=== PATIENT | male | born 1930 | race Caucasian/White ===

== ENCOUNTER 2018-08-20 01:54 | Inpatient (IN) | payer MEDICARE ==
[~2018-08-20] VITALS: Ht 185.4 cm; Wt 88.0 kg
--- NOTE | 2018-08-20 02:00 | NUR ---
EKG COMPLETED BY [employer] AND DR[employer] INSPECTOR.
--- NOTE | 2018-08-20 02:01 | NUR ---
PT REPORTS BEING AWOKE FROM SLEEP WITH GENERALIZED ABD PAIN AND NAUSEA, NO EMESIS. PT DENIES DIARRHEA OR URINARY SX. PT DENIES PRIOR SICKNESS. PT DENIES FEVER. PT A/OX4, BREATHING E/U, ON 3L O2 CONTINUOUS AT HOME. PT GIVEN FENTANYL 150MCG AND ZOFRAN 8MG ENROUTE PER EMS, PT REPORTS MINIMAL RELIEF FROM MEDS. PT RESTING, PLACED ON CARDIAC AND VS MONITORING. 18G IV TO RAC BY EMS. PT AWAITING MD CHOWDARY. CALL LIGHT IN REACH.
--- NOTE | 2018-08-20 02:03 | NUR ---
MD TO BEDSIDE FOR PT EVAL.
--- NOTE | 2018-08-20 02:21 | NUR ---
LAB AT BEDSIDE FOR BLOOD DRAW.
[2018-08-20] MEDS ORDERED: FAMOTIDINE 20 MG/2 ML ONE (02:25)
[2018-08-20] MEDS ORDERED: PLEASE ENTER ALLERGIES MC SCH (02:30)
[2018-08-20] MEDS ORDERED: FAMOTIDINE 20 MG/2 ML IVP ONE (02:30)
--- NOTE | 2018-08-20 02:30 | NUR ---
PT RECIEVED PEPCID PER ORDERS, SEE EMAR. PT GIVEN A URINAL AT BEDSIDE, PT STATES HE CANNOT URINATE AT THIS TIME R/T NAUSEA. WILL MONITOR PT. VSS. CONTINUES ON CARDIAC AND VS MONITORING. NO DISTRESS NOTED.
[2018-08-20 02:35] LABS: BASOPHILS # (AUTO) 0.02 x10^3/uL (0-0.1); BASOPHILS % (AUTO) 0 % (0-1); EOSINOPHILS % (AUTO) 3 % (1-7); LYMPHOCYTES # (AUTO) 0.66 x10^3/uL (1-3.4); LYMPHOCYTES % (AUTO) 10 % (22-44); MD NO; MEAN CORPUSCULAR HEMOGLOBIN 31.8 pg (27.5-34.5); MEAN CORPUSCULAR VOLUME 96.4 fL (81-97); MEAN PLATELET VOLUME 8.9 fL (7.4-10.4); MONOCYTES # (AUTO) 0.53 x10^3/uL (0.2-0.8); MONOCYTES % (AUTO) 8 % (2-9); NEUTROPHILS # (AUTO) 5.11 x10^3/uL (1.8-6.8); NEUTROPHILS % (AUTO) 78 % (42-75); PLATELET COUNT 104 x10^3/uL (130-400); RED BLOOD COUNT 3.74 x10^6/uL (4.38-5.82); RED CELL DISTRIBUTION WIDTH 15.3 % (9.4-14.8)
[2018-08-20 02:42] LABS: ALANINE AMINOTRANSFERASE 26 U/L (12-78); ALBUMIN 3.7 g/dL (3.4-5.0); ANION GAP 10 mmol/L (5-15); CALCIUM 8.8 mg/dL (8.5-10.1); CHLORIDE 105 mmol/L (98-107); CREATININE 2.47 mg/dL (0.7-1.3)
[2018-08-20 02:46] LABS: ALKALINE PHOSPHATASE 177 U/L (45-117); BILIRUBIN,TOTAL 0.8 mg/dL (0.2-1.0); TOTAL PROTEIN 7.5 g/dL (6.4-8.2)
[2018-08-20 02:49] LABS: TROPONIN I 0.956 ng/mL (0.000-0.045)
--- NOTE | 2018-08-20 02:50 | NUR ---
PT UP TO BEDSIDE FOR URINE COLLECTION VIA URINAL WITH STEADY GAIT.
--- NOTE | 2018-08-20 02:57 | NUR ---
URINE SENT TO LAB, PT REPORTS STILL FEELING SICK AND HAVING NAUSEA, MD NOTIFIED, AWAITING ORDERS. PT TO CT VIA [facility]. PT TO HAVE REPEAT EKG WHEN RETURN FROM CT.
[2018-08-20] MEDS ORDERED: ASPIRIN 325 MG TABLET PO SCH (03:00)
[2018-08-20] MEDS ORDERED: PROMETHAZINE 25 MG/ML, 1ML IM ONE (03:00)
[2018-08-20] MEDS ORDERED: ASPIRIN 325 MG TABLET ONE (03:13)
[2018-08-20] MEDS ORDERED: PROMETHAZINE 25 MG/ML, 1ML ONE (03:13)
--- NOTE | 2018-08-20 03:16 | NUR ---
PT RETURN FROM CT, EKG COMPLETE. PT TO RECIEVE MEDS.
--- NOTE | 2018-08-20 03:20 | NUR ---
PT RECIEVED MEDS PER ORDERS, SEE EMAR. PT TOLERATED INJECTION TO R DELTOID. PT CONTINUES ON CARDIAC AND VS MONITORING. CALL LIGHT IN REACH.
[2018-08-20 03:27] LABS: CULTURE INDICATED? NO; MICROSCOPIC NOT IND
--- NOTE | 2018-08-20 03:37 | NUR ---
unable to update med list, pt states he had a list in his wallet but gave it to EMS to look at and doesn't think he got it back.
[2018-08-20] MEDS ORDERED: HEPARIN 25,000 UNITS/500ML PMX 500 ML IV PRN ×2 (04:00→05:30)
[2018-08-20] MEDS ORDERED: HEPARIN 5,000 UNITS/ML, 1ML IV ONE (04:00)
[2018-08-20] MEDS ORDERED: HEPARIN 25,000 UNITS/500ML PMX 500 ML ONE (04:09)
[2018-08-20] MEDS ORDERED: HEPARIN 5,000 UNITS/ML, 1ML ONE (04:09)
[2018-08-20] MEDS ORDERED: [UNRECOGNIZED DRUG - OTHER] PO (04:12)
[2018-08-20] MEDS ORDERED: PANT20TA3 PO (04:12)
[2018-08-20] MEDS ORDERED: CLOP75TA52 PO (04:12)
[2018-08-20] MEDS ORDERED: FURO-92 PO (04:12)
[2018-08-20] MEDS ORDERED: LEVO175T5 PO (04:12)
[2018-08-20] MEDS ORDERED: LOSA25TA25 PO (04:12)
[2018-08-20] MEDS ORDERED: CARV6.252 PO (04:12)
--- NOTE | 2018-08-20 04:19 | NUR ---
REPORT TO MAX HOWELL. THIS RN SPOKE WITH [facility] FOR MED LIST, MED LIST RECIEVED FROM [facility], MED LIST UPDATED. PT TO HAVE HEPARIN PRIOR TO GOING TO ROOM.
--- NOTE | 2018-08-20 04:27 | NUR ---
THIS RN SPOKE WITH HERON IN PHARMACY TO VERIFY HEPARIN, PER HERON THE PHARMACIST PT TO HAVE 4000 UNITY BOLUS WITH 18ML/HR DRIP.
[2018-08-20] MEDS ORDERED: POLYETHYLENE GLYCOL 17 GM PACKET PO PRN (04:30)
[2018-08-20] MEDS ORDERED: morphine SULFATE 10 MG/ML, 1ML IVPush PRN (04:30)
[2018-08-20] MEDS ORDERED: ONDANSETRON 2MG/ML, 2ML IVPush PRN (04:30)
--- NOTE | 2018-08-20 04:39 | NUR ---
HEPARIN VERIFIED BY CLEMENTINA Case RN. HEPARIN GIVEN PER ORDERS, AND PER PHARMACY.
--- NOTE | 2018-08-20 04:42 | NUR ---
PT TO US VIA GURNEY. ALL BELONGINGS WITH PT TO US IF ABLE TO BE TRANSPORTED TO ROOM.
[2018-08-20] MEDS: [UNRECOGNIZED DRUG - OTHER] MC SCH ×2 (05:30→10:30)
[2018-08-20] MEDS: CEFTRIAXONE PMX 2GM/50ML 50 ML IV SCH (05:36)
[2018-08-20] MEDS: SODIUM CHLORIDE 0.9% 1,000 ML IV SCH ×2 (05:36→17:53)
[2018-08-20 06:39] VITALS: BP 124/76
[2018-08-20 07:19] LABS: TROPONIN I 0.879 ng/mL (0.000-0.045)
[2018-08-20 07:58] VITALS: BP 119/74
[2018-08-20] MEDS ORDERED: LEVOTHYROXINE 50 MCG TABLET ONE (08:38)
[2018-08-20] MEDS ORDERED: LEVOTHYROXINE 100 MCG TABLET ONE (08:38)
[2018-08-20] MEDS ORDERED: LEVOTHYROXINE 25 MCG TABLET ONE (08:38)
[2018-08-20] MEDS ORDERED: PANTOPRAZOLE 40 MG IV ONE (08:40)
[2018-08-20 08:41] LABS: ANION GAP 8 mmol/L (5-15); CALCIUM 8.7 mg/dL (8.5-10.1); CHLORIDE 106 mmol/L (98-107)
[2018-08-20] MEDS ORDERED: PANTOPROZOLE 40MG TABLET ONE (08:41)
[2018-08-20] MEDS: LOSARTAN 25MG TABLET PO SCH (08:45)
[2018-08-20] MEDS: CARVEDILOL 6.25 MG TABLET PO SCH ×2 (08:45→20:10)
[2018-08-20] MEDS: CLOPIDOGREL 75 MG TABLET PO SCH (08:45)
[2018-08-20] MEDS: LEVOTHYROXINE 175 MCG TABLET PO SCH (08:46)
[2018-08-20] MEDS: PANTOPRAZOLE 20MG TABLET PO SCH (08:46)
[2018-08-20] MEDS ORDERED: [UNRECOGNIZED DRUG - OTHER] PO SCH (09:00)
[2018-08-20] MEDS: FEBUXOSTAT 40 MG TABLET PO SCH (10:30)
[2018-08-20 11:27] LABS: TROPONIN I 0.873 ng/mL (0.000-0.045)
[2018-08-20] MEDS: HEPARIN 5,000 UNITS/ML, 1ML IV PRN ×2 (12:40→19:54)
[2018-08-20 12:45] VITALS: BP 117/70
[2018-08-20 13:04] LABS: CALCIUM 8.8 mg/dL (8.5-10.1); CHLORIDE 107 mmol/L (98-107)
[2018-08-20 13:08] LABS: ANION GAP 10 mmol/L (5-15); CREATININE 2.53 mg/dL (0.7-1.3)
[2018-08-20] MEDS ORDERED: MULT-658 PO (16:48)
[2018-08-20] MEDS ORDERED: FEBU40TA PO (16:49)
[2018-08-20 20:00] VITALS: BP 106/62
[2018-08-20 23:46] LABS: CHLORIDE,URINE RANDOM 15 mmol/L; POTASSIUM,URINE RANDOM 27 mmol/L; SODIUM,URINE RANDOM 29 mmol/L
[2018-08-21 02:00] VITALS: BP 110/67
[2018-08-21] MEDS: CEFTRIAXONE PMX 2GM/50ML 50 ML IV SCH (04:26)
[2018-08-21 05:38] LABS: MEAN PLATELET VOLUME 9.4 fL (7.4-10.4); PLATELET COUNT 98 x10^3/uL (130-400); RED BLOOD COUNT 3.15 x10^6/uL (4.38-5.82); RED CELL DISTRIBUTION WIDTH 15.7 % (9.4-14.8)
[2018-08-21 05:45] LABS: CHLORIDE 111 mmol/L (98-107)
[2018-08-21 05:54] LABS: ALANINE AMINOTRANSFERASE 22 U/L (12-78); ALBUMIN 3.2 g/dL (3.4-5.0); ALKALINE PHOSPHATASE 148 U/L (45-117); ANION GAP 4 mmol/L (5-15); BILIRUBIN,TOTAL 0.6 mg/dL (0.2-1.0); CALCIUM 8.8 mg/dL (8.5-10.1); CHOL/HDL RATIO 2.3; CHOLESTEROL, TOTAL 96 mg/dL (140-239); HDL CHOL % 44 % (26-37); HDL CHOLESTEROL (DIRECT) 42 mg/dL (40-60); LDL CHOLESTEROL,CALCULATED 45 mg/dL (54-169); LDL/HDL RATIO 1.1 (0.5-3.0); TOTAL PROTEIN 6.7 g/dL (6.4-8.2); TRIGLYCERIDES 44 mg/dL (50-200); VLDL CHOLESTEROL 9 mg/dL (0-25)
[2018-08-21 05:55] LABS: BASOPHILS # (AUTO) 0.05 x10^3/uL (0-0.1); BASOPHILS % (AUTO) 1 % (0-1); EOSINOPHILS # (AUTO) 0.26 x10^3/uL (0-0.4); EOSINOPHILS % (AUTO) 4 % (1-7); LYMPHOCYTES # (AUTO) 1.03 x10^3/uL (1-3.4); LYMPHOCYTES % (AUTO) 16 % (22-44); MD SCAN; MONOCYTES # (AUTO) 0.61 x10^3/uL (0.2-0.8); MONOCYTES % (AUTO) 9 % (2-9); NEUTROPHILS # (AUTO) 4.59 x10^3/uL (1.8-6.8); NEUTROPHILS % (AUTO) 70 % (42-75)
[2018-08-21 07:18] VITALS: BP 121/72
[2018-08-21] MEDS: CLOPIDOGREL 75 MG TABLET PO SCH (08:07)
[2018-08-21] MEDS: CARVEDILOL 6.25 MG TABLET PO SCH ×2 (08:08→20:50)
[2018-08-21] MEDS: PANTOPRAZOLE 20MG TABLET PO SCH (08:08)
[2018-08-21] MEDS: FEBUXOSTAT 40 MG TABLET PO SCH (08:08)
[2018-08-21] MEDS: LOSARTAN 25MG TABLET PO SCH (08:08)
[2018-08-21] MEDS: LEVOTHYROXINE 175 MCG TABLET PO SCH (08:08)
[2018-08-21] MEDS: HEPARIN 5,000 UNITS/ML, 1ML IV PRN (10:13)
[2018-08-21 13:19] VITALS: BP 106/62
[2018-08-21 20:31] VITALS: BP 115/64
[2018-08-22 01:53] VITALS: BP 100/59
[2018-08-22] MEDS: ACETAMINOPHEN 325 MG TABLET PO PRN ×2 (02:07→15:06)
[2018-08-22] MEDS ORDERED: ASPIRIN 81 MG TABLET EC PO SCH (06:00)
[2018-08-22 06:03] LABS: MEAN CORPUSCULAR HEMOGLOBIN 32.9 pg (27.5-34.5); MEAN CORPUSCULAR VOLUME 96.8 fL (81-97); RED BLOOD COUNT 3.02 x10^6/uL (4.38-5.82); RED CELL DISTRIBUTION WIDTH 15.7 % (9.4-14.8)
[2018-08-22 06:12] LABS: CALCIUM 8.5 mg/dL (8.5-10.1); CHLORIDE 111 mmol/L (98-107)
[2018-08-22 06:15] LABS: ANION GAP 9 mmol/L (5-15); CREATININE 2.55 mg/dL (0.7-1.3)
[2018-08-22 06:27] LABS: BASOPHILS # (AUTO) 0.02 x10^3/uL (0-0.1); BASOPHILS % (AUTO) 0 % (0-1); EOSINOPHILS # (AUTO) 0.13 x10^3/uL (0-0.4); EOSINOPHILS % (AUTO) 2 % (1-7); LYMPHOCYTES # (AUTO) 0.87 x10^3/uL (1-3.4); LYMPHOCYTES % (AUTO) 12 % (22-44); MD SCAN; MEAN PLATELET VOLUME 9.2 fL (7.4-10.4); MONOCYTES # (AUTO) 0.86 x10^3/uL (0.2-0.8); MONOCYTES % (AUTO) 12 % (2-9); NEUTROPHILS # (AUTO) 5.61 x10^3/uL (1.8-6.8); NEUTROPHILS % (AUTO) 75 % (42-75); PLATELET COUNT 90 x10^3/uL (130-400)
[2018-08-22 07:01] VITALS: BP 103/58
[2018-08-22] MEDS ORDERED: LEVOTHYROXINE 100 MCG TABLET ONE (10:01)
[2018-08-22] MEDS ORDERED: LEVOTHYROXINE 75 MCG TABLET ONE (10:02)
[2018-08-22] MEDS: LOSARTAN 25MG TABLET PO SCH (10:08)
[2018-08-22] MEDS: LEVOTHYROXINE 175 MCG TABLET PO SCH (10:09)
[2018-08-22] MEDS: CLOPIDOGREL 75 MG TABLET PO SCH (10:09)
[2018-08-22] MEDS: CARVEDILOL 6.25 MG TABLET PO SCH (10:09)
[2018-08-22] MEDS: FEBUXOSTAT 40 MG TABLET PO SCH ×2 (10:10→12:53)
[2018-08-22] MEDS: PANTOPRAZOLE 20MG TABLET PO SCH (10:10)
[2018-08-22] MEDS ORDERED: FUROSEMIDE 40 MG TABLET PO SCH (11:30)
[2018-08-22 13:14] VITALS: BP 104/63
[2018-08-22] MEDS ORDERED: FURO-92 PO (14:18)
[2018-08-22] MEDS ORDERED: ASPI81TA45 PO (14:18)
== END 2018-08-22 16:00 | disposition home health service (06) | DRG 682 ==
LOC: ED 03:03 → EDIP 03:42 → 5SO 05:20 → DCLOUNGE 08-22 15:54
PROVIDERS: ADMIT Hospitalist; ATTEND Hospitalist
DX: N17.0 Acute kidney failure with tubular necrosis (principal); E43 Unspecified severe protein-calorie malnutrition; R18.8 Other ascites; J96.10 Chronic respiratory failure, unspecified whether with hypoxia or hypercapnia; N18.4 Chronic kidney disease, stage 4 (severe); E03.9 Hypothyroidism, unspecified; E78.5 Hyperlipidemia, unspecified; E87.5 Hyperkalemia; F17.200 Nicotine dependence, unspecified, uncomplicated; I07.1 Rheumatic tricuspid insufficiency; I12.9 Hypertensive chronic kidney disease with stage 1 through stage 4 chronic kidney disease, or unspecified chronic kidney disease; I25.10 Atherosclerotic heart disease of native coronary artery without angina pectoris; J44.9 Chronic obstructive pulmonary disease, unspecified; K21.9 Gastro-esophageal reflux disease without esophagitis; K74.60 Unspecified cirrhosis of liver; M19.90 Unspecified osteoarthritis, unspecified site; Z95.0 Presence of cardiac pacemaker; Z99.81 Dependence on supplemental oxygen; Z79.899 Other long term (current) drug therapy; Z79.82 Long term (current) use of aspirin; Z88.8 Allergy status to other drugs, medicaments and biological substances; I25.89 Other forms of chronic ischemic heart disease
CPT/HCPCS: 36415; 71045; 74176; 76770; 80048; 80053; 80061; 80069; 81003; 82436; 83605; 83690; 83735; 84100; 84133; 84300; 84443; 84484; 85025; 85520; 93005; 93306; 96372; 96374; G0378; J0696; J1644; J2550; J2270; J3490; J7030

== ENCOUNTER 2018-10-19 17:05 | Inpatient (IN) | payer MEDICARE ==
[~2018-10-19] VITALS: Ht 185.4 cm; Wt 98.1 kg
[~2018-10-19 17:05] MED LIST: ASPI81TA45 PO; CARV6.252 PO; CLOP75TA52 PO; FEBU40TA PO; FURO-92 PO; LEVO175T5 PO; LOSA25TA25 PO; MULT-658 PO; PANT20TA3 PO; [UNRECOGNIZED DRUG - OTHER] PO
[2018-10-19] MEDS ORDERED: ASPIRIN 81 MG TABLET CHEW PO ONE (18:00)
[2018-10-19] MEDS ORDERED: ASPIRIN 81 MG TABLET CHEW ONE (18:24)
[2018-10-19 18:27] LABS: BASOPHILS # (AUTO) 0.03 x10^3/uL (0-0.1); BASOPHILS % (AUTO) 0 % (0-1); EOSINOPHILS # (AUTO) 0.66 x10^3/uL (0-0.4); EOSINOPHILS % (AUTO) 9 % (1-7); LYMPHOCYTES # (AUTO) 0.69 x10^3/uL (1-3.4); LYMPHOCYTES % (AUTO) 9 % (22-44); MD NO; MEAN CORPUSCULAR HEMOGLOBIN 31.6 pg (27.5-34.5); MEAN CORPUSCULAR VOLUME 95.8 fL (81-97); MEAN PLATELET VOLUME 8.7 fL (7.4-10.4); MONOCYTES # (AUTO) 0.68 x10^3/uL (0.2-0.8); MONOCYTES % (AUTO) 9 % (2-9); NEUTROPHILS # (AUTO) 5.73 x10^3/uL (1.8-6.8); NEUTROPHILS % (AUTO) 74 % (42-75); PLATELET COUNT 203 x10^3/uL (130-400); RED BLOOD COUNT 4.03 x10^6/uL (4.38-5.82); RED CELL DISTRIBUTION WIDTH 15.7 % (9.4-14.8)
--- NOTE | 2018-10-19 18:27 | NUR ---
ATTEMPTED JIMENEZ PLACED TO COMPLETED DEPTH AND DRAINDED APPROX 600 ML CLEAR URINE HOWEVER ANY ATTEMPT TO INFLATE BALLOON CAUSE EXTREME PAIN TO THE PT CATH REMOVED ERPA AWARE
[2018-10-19 18:31] LABS: ALBUMIN 3.5 g/dL (3.4-5.0); ANION GAP 7 mmol/L (5-15); CALCIUM 8.8 mg/dL (8.5-10.1); CHLORIDE 98 mmol/L (98-107); CREATININE 2.77 mg/dL (0.7-1.3)
--- NOTE | 2018-10-19 19:11 | NUR ---
REPORT OF PT FROM DANTE GOMEZ AND ASSUMING CARE OF PT AT THIS TIME.
[2018-10-19] MEDS ORDERED: LABETALOL 5 MG/ML SYRINGE IVPush PRN (20:30)
[2018-10-19] MEDS ORDERED: POLYETHYLENE GLYCOL 17 GM PACKET PO PRN (20:30)
[2018-10-19] MEDS ORDERED: ONDANSETRON ODT 4 MG PO PRN (20:30)
[2018-10-19] MEDS ORDERED: LABETALOL 5MG/ML, 20ML IVPush PRN (20:30)
--- NOTE | 2018-10-19 20:30 | NUR ---
JIMENEZ PLACED WITH 12FR COUDE TIP PER [facility] POLICY. PT TOLERATED PROCEDURE WELL. PT VSS AND UPDATED IN EMR.
--- NOTE | 2018-10-19 21:14 | NUR ---
REPORT OF PT CALLED TO DANTE AWAN. TARIK AND UPDATED IN EMR AT THIS TIME. TECH PAGED FOR TRANSPORT.
[2018-10-19 22:01] VITALS: BP 157/84
[2018-10-19] MEDS ORDERED: TRAM50TA2 PO (22:38)
[2018-10-19] MEDS: HEPARIN 5,000 UNITS/ML, 1ML SQ SCH (23:17)
[2018-10-20 01:18] VITALS: BP 132/79
[2018-10-20 02:08] LABS: BASOPHILS # (AUTO) 0.02 x10^3/uL (0-0.1); BASOPHILS % (AUTO) 0 % (0-1); EOSINOPHILS # (AUTO) 0.57 x10^3/uL (0-0.4); EOSINOPHILS % (AUTO) 8 % (1-7); LYMPHOCYTES # (AUTO) 0.64 x10^3/uL (1-3.4); LYMPHOCYTES % (AUTO) 9 % (22-44); MD NO; MEAN CORPUSCULAR HEMOGLOBIN 31.9 pg (27.5-34.5); MEAN CORPUSCULAR HGB CONC 33.7 g/dL (33.2-36.2); MEAN CORPUSCULAR VOLUME 94.5 fL (81-97); MEAN PLATELET VOLUME 8.3 fL (7.4-10.4); MONOCYTES # (AUTO) 0.78 x10^3/uL (0.2-0.8); MONOCYTES % (AUTO) 10 % (2-9); NEUTROPHILS # (AUTO) 5.47 x10^3/uL (1.8-6.8); NEUTROPHILS % (AUTO) 73 % (42-75); PLATELET COUNT 183 x10^3/uL (130-400); RED BLOOD COUNT 3.72 x10^6/uL (4.38-5.82); RED CELL DISTRIBUTION WIDTH 15.4 % (9.4-14.8)
[2018-10-20 02:23] LABS: TROPONIN I 0.949 ng/mL (0.000-0.045)
[2018-10-20 03:00] LABS: ANION GAP 10 mmol/L (5-15); CALCIUM 8.4 mg/dL (8.5-10.1); CHLORIDE 101 mmol/L (98-107); CREATININE 2.72 mg/dL (0.7-1.3)
[2018-10-20] MEDS: CARVEDILOL 6.25 MG TABLET PO SCH ×2 (05:58→16:40)
[2018-10-20] MEDS: ACETAMINOPHEN 325 MG TABLET PO PRN ×4 (05:58→22:38)
[2018-10-20] MEDS: ASPIRIN 81 MG TABLET EC PO SCH (05:58)
[2018-10-20 08:20] VITALS: BP 128/85
[2018-10-20] MEDS: CLOPIDOGREL 75 MG TABLET PO SCH (09:15)
[2018-10-20] MEDS: FUROSEMIDE 20 MG/2 ML IV SCH ×2 (09:15→16:40)
[2018-10-20] MEDS: PANTOPRAZOLE 20MG TABLET PO SCH (09:15)
[2018-10-20] MEDS: LEVOTHYROXINE 175 MCG TABLET PO SCH (09:15)
[2018-10-20] MEDS: FEBUXOSTAT 40 MG TABLET PO SCH (09:15)
[2018-10-20] MEDS: HEPARIN 5,000 UNITS/ML, 1ML SQ SCH ×3 (09:15→22:38)
[2018-10-20 13:54] VITALS: BP 117/79
[2018-10-20 15:36] LABS: MICROSCOPIC AUTO
[2018-10-20 15:44] LABS: CULTURE INDICATED? YES
[2018-10-20 19:14] VITALS: BP 125/72
[2018-10-21] MEDS ORDERED: DIPHENHYDRAMINE 50 MG CAPSULE PO PRN
[2018-10-21] MEDS ORDERED: DIPHENHYDRAMINE 50 MG CAPSULE ONE (00:01)
[2018-10-21 03:27] VITALS: BP 111/70
[2018-10-21 06:00] VITALS: BP 113/68
[2018-10-21] MEDS: CARVEDILOL 6.25 MG TABLET PO SCH ×2 (06:01→18:25)
[2018-10-21] MEDS: ASPIRIN 81 MG TABLET EC PO SCH (06:01)
[2018-10-21 06:05] LABS: BASOPHILS # (AUTO) 0.04 x10^3/uL (0-0.1); BASOPHILS % (AUTO) 1 % (0-1); EOSINOPHILS # (AUTO) 1.37 x10^3/uL (0-0.4); EOSINOPHILS % (AUTO) 17 % (1-7); LYMPHOCYTES % (AUTO) 7 % (22-44); MD NO; MEAN CORPUSCULAR HGB CONC 33.6 g/dL (33.2-36.2); MEAN CORPUSCULAR VOLUME 95.3 fL (81-97); MEAN PLATELET VOLUME 8.8 fL (7.4-10.4); MONOCYTES % (AUTO) 10 % (2-9); NEUTROPHILS % (AUTO) 65 % (42-75); PLATELET COUNT 189 x10^3/uL (130-400); RED BLOOD COUNT 3.89 x10^6/uL (4.38-5.82); RED CELL DISTRIBUTION WIDTH 15.8 % (9.4-14.8)
[2018-10-21 06:18] LABS: ALBUMIN 2.8 g/dL (3.4-5.0); ANION GAP 7 mmol/L (5-15); CALCIUM 8.1 mg/dL (8.5-10.1); CHLORIDE 101 mmol/L (98-107)
[2018-10-21 06:24] LABS: CREATININE 2.54 mg/dL (0.7-1.3); FREE T4 (FREE THYROXINE) 1.01 ng/dL (0.76-1.46)
[2018-10-21 07:48] VITALS: BP 112/67
[2018-10-21] MEDS: LEVOTHYROXINE 175 MCG TABLET PO SCH (08:47)
[2018-10-21] MEDS: PANTOPRAZOLE 20MG TABLET PO SCH (08:48)
[2018-10-21] MEDS: FEBUXOSTAT 40 MG TABLET PO SCH (08:48)
[2018-10-21] MEDS: FUROSEMIDE 20 MG/2 ML IV SCH ×2 (08:48→18:25)
[2018-10-21] MEDS: CLOPIDOGREL 75 MG TABLET PO SCH (08:48)
[2018-10-21] MEDS: HEPARIN 5,000 UNITS/ML, 1ML SQ SCH ×2 (08:49→15:04)
[2018-10-21] MEDS ORDERED: MELATONIN 5 MG TABLET PO PRN (09:00)
[2018-10-21 12:59] VITALS: BP 93/55
[2018-10-21] MEDS: ACETAMINOPHEN 325 MG TABLET PO PRN (13:05)
[2018-10-21 19:17] VITALS: BP 114/66
[2018-10-22] MEDS: HEPARIN 5,000 UNITS/ML, 1ML SQ SCH ×3 (03:09→20:28)
[2018-10-22 03:22] VITALS: BP 112/70
[2018-10-22] MEDS: CARVEDILOL 6.25 MG TABLET PO SCH ×2 (06:29→18:14)
[2018-10-22] MEDS: ASPIRIN 81 MG TABLET EC PO SCH (06:29)
[2018-10-22] MEDS ORDERED: PHARMACY MAY ADJ FOR RENAL FX MC PRN (07:30)
[2018-10-22 07:45] VITALS: BP 134/77
[2018-10-22] MEDS: LEVOTHYROXINE 175 MCG TABLET PO SCH (08:19)
[2018-10-22] MEDS ORDERED: LEVOTHYROXINE 75 MCG TABLET ONE (08:48)
[2018-10-22] MEDS ORDERED: LEVOTHYROXINE 100 MCG TABLET ONE (08:48)
[2018-10-22] MEDS: AMOXICILLIN/CLAV 500-125MG TABLET PO SCH ×2 (08:51→20:28)
[2018-10-22] MEDS: FUROSEMIDE 20 MG/2 ML IV SCH (08:52)
[2018-10-22] MEDS: PANTOPRAZOLE 20MG TABLET PO SCH (08:52)
[2018-10-22] MEDS: CLOPIDOGREL 75 MG TABLET PO SCH (10:25)
[2018-10-22] MEDS: FEBUXOSTAT 40 MG TABLET PO SCH (10:25)
[2018-10-22 14:51] VITALS: BP 120/69
[2018-10-22] MEDS ORDERED: FUROSEMIDE 20 MG TABLET PO SCH (17:00)
[2018-10-22 17:45] VITALS: BP 125/78
[2018-10-22] MEDS ORDERED: FUROSEMIDE 40 MG/4 ML IV ONE (18:00)
[2018-10-22 19:04] VITALS: BP 125/74
[2018-10-23] VITALS (7 sets, daily range): BP systolic 99–118; BP diastolic 58–73
[2018-10-23] MEDS: HEPARIN 5,000 UNITS/ML, 1ML SQ SCH ×3 (03:17→21:31)
[2018-10-23] MEDS: ACETAMINOPHEN 325 MG TABLET PO PRN ×2 (03:17→21:31)
[2018-10-23] MEDS: ASPIRIN 81 MG TABLET EC PO SCH (06:34)
[2018-10-23] MEDS: LEVOTHYROXINE 175 MCG TABLET PO SCH (06:34)
[2018-10-23] MEDS: CARVEDILOL 6.25 MG TABLET PO SCH ×2 (06:34→16:33)
[2018-10-23] MEDS ORDERED: FUROSEMIDE 40 MG TABLET PO SCH (08:30)
[2018-10-23] MEDS: AMOXICILLIN/CLAV 500-125MG TABLET PO SCH ×2 (08:54→21:31)
[2018-10-23] MEDS: FEBUXOSTAT 40 MG TABLET PO SCH (08:54)
[2018-10-23] MEDS: CLOPIDOGREL 75 MG TABLET PO SCH (08:54)
[2018-10-23] MEDS: PANTOPRAZOLE 20MG TABLET PO SCH (08:54)
[2018-10-23 09:08] LABS: ALKALINE PHOSPHATASE 153 U/L (45-117); BILIRUBIN,TOTAL 0.8 mg/dL (0.2-1.0); TOTAL PROTEIN 6.6 g/dL (6.4-8.2)
[2018-10-23 09:11] LABS: ANION GAP 5 mmol/L (5-15); CHLORIDE 103 mmol/L (98-107)
[2018-10-23 09:18] LABS: CALCIUM 8.1 mg/dL (8.5-10.1)
[2018-10-23 09:19] LABS: ALANINE AMINOTRANSFERASE 21 U/L (12-78); ALBUMIN 2.7 g/dL (3.4-5.0); CREATININE 2.32 mg/dL (0.7-1.3)
[2018-10-23] MEDS ORDERED: FURO40TA6 PO (09:22)
[2018-10-23] MEDS ORDERED: FURO20TA3 PO (09:22)
[2018-10-23] MEDS ORDERED: SODI650T PO (09:22)
[2018-10-23] MEDS ORDERED: FUROSEMIDE 20 MG/2 ML IV ONE (09:30)
[2018-10-23] MEDS ORDERED: FUROSEMIDE 20 MG/2 ML ONE (09:31)
[2018-10-23] MEDS: SODIUM BICARBONATE 650 MG TABLET PO SCH ×2 (09:36→21:31)
[2018-10-23] MEDS ORDERED: ARTIFICIAL TEARS 15 DROP/ML BOTTLE EACHEYE PRN (12:30)
[2018-10-23] MEDS: FUROSEMIDE 40 MG/4 ML IV SCH (16:33)
[2018-10-24 02:30] VITALS: BP 101/63
[2018-10-24] MEDS: ACETAMINOPHEN 325 MG TABLET PO PRN ×2 (03:40→20:16)
[2018-10-24 05:51] LABS: ALBUMIN 2.9 g/dL (3.4-5.0); ANION GAP 6 mmol/L (5-15); CALCIUM 8.1 mg/dL (8.5-10.1); CHLORIDE 104 mmol/L (98-107)
[2018-10-24 05:52] LABS: CREATININE 2.49 mg/dL (0.7-1.3)
[2018-10-24] MEDS: HEPARIN 5,000 UNITS/ML, 1ML SQ SCH ×2 (06:11→15:52)
[2018-10-24] MEDS: ASPIRIN 81 MG TABLET EC PO SCH (06:11)
[2018-10-24] MEDS: CARVEDILOL 6.25 MG TABLET PO SCH ×2 (06:11→17:35)
[2018-10-24] MEDS: LEVOTHYROXINE 175 MCG TABLET PO SCH (06:12)
[2018-10-24 07:20] VITALS: BP 114/71
[2018-10-24] MEDS: FUROSEMIDE 40 MG/4 ML IV SCH ×2 (07:30→17:34)
[2018-10-24] MEDS ORDERED: FUROSEMIDE 40 MG/4 ML ONE (08:38)
[2018-10-24] MEDS: SODIUM BICARBONATE 650 MG TABLET PO SCH ×2 (08:44→20:16)
[2018-10-24] MEDS: FEBUXOSTAT 40 MG TABLET PO SCH (08:44)
[2018-10-24] MEDS: CLOPIDOGREL 75 MG TABLET PO SCH (08:44)
[2018-10-24] MEDS: AMOXICILLIN/CLAV 500-125MG TABLET PO SCH ×2 (08:44→20:15)
[2018-10-24] MEDS: PANTOPRAZOLE 20MG TABLET PO SCH (08:44)
[2018-10-24] MEDS ORDERED: FUROSEMIDE 100 MG/10 ML IV SCH (09:00)
[2018-10-24 13:20] VITALS: BP 114/71
[2018-10-24 19:47] VITALS: BP 136/74
[2018-10-25 01:10] VITALS: BP 120/73
[2018-10-25] MEDS: HEPARIN 5,000 UNITS/ML, 1ML SQ SCH ×2 (02:48→10:11)
[2018-10-25] MEDS: ACETAMINOPHEN 325 MG TABLET PO PRN ×2 (02:48→15:55)
[2018-10-25] MEDS: ASPIRIN 81 MG TABLET EC PO SCH (05:38)
[2018-10-25] MEDS: LEVOTHYROXINE 175 MCG TABLET PO SCH (05:38)
[2018-10-25] MEDS: CARVEDILOL 6.25 MG TABLET PO SCH (05:38)
[2018-10-25 06:06] LABS: BASOPHILS # (AUTO) 0.02 x10^3/uL (0-0.1); BASOPHILS % (AUTO) 0 % (0-1); EOSINOPHILS # (AUTO) 1.65 x10^3/uL (0-0.4); EOSINOPHILS % (AUTO) 21 % (1-7); LYMPHOCYTES # (AUTO) 0.56 x10^3/uL (1-3.4); LYMPHOCYTES % (AUTO) 7 % (22-44); MD NO; MEAN CORPUSCULAR HEMOGLOBIN 31.4 pg (27.5-34.5); MEAN CORPUSCULAR HGB CONC 32.9 g/dL (33.2-36.2); MEAN CORPUSCULAR VOLUME 95.5 fL (81-97); MEAN PLATELET VOLUME 8.9 fL (7.4-10.4); MONOCYTES # (AUTO) 0.74 x10^3/uL (0.2-0.8); MONOCYTES % (AUTO) 9 % (2-9); NEUTROPHILS # (AUTO) 4.94 x10^3/uL (1.8-6.8); NEUTROPHILS % (AUTO) 63 % (42-75); PLATELET COUNT 174 x10^3/uL (130-400); RED BLOOD COUNT 3.68 x10^6/uL (4.38-5.82); RED CELL DISTRIBUTION WIDTH 16.2 % (9.4-14.8)
[2018-10-25 06:18] LABS: ALANINE AMINOTRANSFERASE 24 U/L (12-78); ALBUMIN 2.8 g/dL (3.4-5.0); ANION GAP 5 mmol/L (5-15); CALCIUM 8.5 mg/dL (8.5-10.1); CHLORIDE 103 mmol/L (98-107); CREATININE 2.63 mg/dL (0.7-1.3)
[2018-10-25 06:20] LABS: ALKALINE PHOSPHATASE 169 U/L (45-117); BILIRUBIN,TOTAL 1.4 mg/dL (0.2-1.0); TOTAL PROTEIN 6.8 g/dL (6.4-8.2)
[2018-10-25 07:00] VITALS: BP 105/65
[2018-10-25] MEDS: AMOXICILLIN/CLAV 500-125MG TABLET PO SCH (08:25)
[2018-10-25] MEDS: FUROSEMIDE 40 MG/4 ML IV SCH (08:25)
[2018-10-25] MEDS: PANTOPRAZOLE 20MG TABLET PO SCH (08:25)
[2018-10-25] MEDS: FEBUXOSTAT 40 MG TABLET PO SCH (10:11)
[2018-10-25] MEDS: CLOPIDOGREL 75 MG TABLET PO SCH (10:11)
[2018-10-25] MEDS: SODIUM BICARBONATE 650 MG TABLET PO SCH (10:11)
[2018-10-25 13:25] VITALS: BP 111/64
[2018-10-25] MEDS ORDERED: FURO10VI37 IV (15:36)
[2018-10-25] MEDS ORDERED: AMOX-367 PO (15:36)
[2018-10-25] MEDS ORDERED: TRAM50TA2 PO (15:36)
[2018-10-25] MEDS ORDERED: MELA5TAB19 PO (15:36)
== END 2018-10-25 17:22 | DRG 291 ==
LOC: ED 20:18 → EDIP 20:21 → 5SO 21:49
PROVIDERS: ADMIT Family Medicine; ATTEND Family Medicine
PROC: 0T9B70Z Drainage of Bladder with Drainage Device, Via Natural or Artificial Opening (ICD-10-PCS; principal; 2018-10-20)
DX: I13.0 Hypertensive heart and chronic kidney disease with heart failure and stage 1 through stage 4 chronic kidney disease, or unspecified chronic kidney disease (principal); J96.21 Acute and chronic respiratory failure with hypoxia; N17.9 Acute kidney failure, unspecified; J96.11 Chronic respiratory failure with hypoxia; L03.119 Cellulitis of unspecified part of limb; I50.9 Heart failure, unspecified; E03.9 Hypothyroidism, unspecified; I25.10 Atherosclerotic heart disease of native coronary artery without angina pectoris; K21.9 Gastro-esophageal reflux disease without esophagitis; J44.9 Chronic obstructive pulmonary disease, unspecified; N18.3 Chronic kidney disease, stage 3 (moderate); N50.89 Other specified disorders of the male genital organs; Z87.891 Personal history of nicotine dependence; Z95.0 Presence of cardiac pacemaker; Z99.81 Dependence on supplemental oxygen; M10.9 Gout, unspecified
CPT/HCPCS: 36415; 71045; 80048; 80053; 81001; 82040; 83880; 84439; 84443; 84484; 85025; 87086; 93005; 93970; 99285; G0378; J1644; J1940

== ENCOUNTER 2019-02-25 05:36 | Emergency (ER) | payer MEDICARE ==
[~2019-02-25 05:36] MED LIST changes: +AMOX-367 PO; +FURO10VI37 IV; +FURO20TA3 PO; +FURO40TA6 PO; +MELA5TAB19 PO; +SODI650T PO; +TRAM50TA2 PO
[2019-02-25 05:43] VITALS: BP 119/73
[2019-02-25] MEDS ORDERED: FURO80TA77 PO (07:28)
[2019-02-25] MEDS ORDERED: HEART PILL PO (07:28)
[2019-02-25] MEDS ORDERED: IPRA3AMP30 INH (07:28)
[2019-02-25] MEDS ORDERED: ACET-1600 PO (07:28)
[2019-02-25] MEDS ORDERED: METO25TA35 PO (07:28)
[2019-02-25] MEDS ORDERED: OXYC5CAP2 PO (07:28)
[2019-02-25] MEDS ORDERED: BUDE10.2 INH (07:28)
== END 2019-02-25 05:50 ==
LOC: ED 05:40
DX: M79.601 Pain in right arm (principal); Z53.21 Procedure and treatment not carried out due to patient leaving prior to being seen by health care provider

== ENCOUNTER 2019-02-25 06:02 | Day surgery (SDC) | payer MEDICARE ==
[~2019-02-25] VITALS: Ht 188 cm; Wt 100.6 kg
[2019-02-25] MEDS ORDERED: HEPARIN 1,000 UNITS/ML, 10ML ONE (06:48)
[2019-02-25] MEDS ORDERED: PROTAMINE SULFATE 10 MG/ML, 5ML ONE (06:48)
[2019-02-25] MEDS ORDERED: BUPIVACAINE/EPI 0.5% 1:200K ONE (06:48)
[2019-02-25] MEDS ORDERED: PAPAVERINE 30 MG/ML, 2ML ONE ×2 (06:48→06:50)
[2019-02-25] MEDS ORDERED: THROMBIN 5,000 UNIT VIAL TP ONE (06:48)
[2019-02-25] MEDS ORDERED: LIDOCAINE 1%, 20ML ONE (06:49)
[2019-02-25] MEDS ORDERED: VANCOMYCIN 1,000 MG ONE (06:49)
[2019-02-25 07:06] VITALS: BP 116/66
[2019-02-25] MEDS ORDERED: BACITRACIN 50,000 UNIT ONE (07:16)
[2019-02-25 07:28] LABS: BASOPHILS # (AUTO) 0.04 x10^3/uL (0-0.1); BASOPHILS % (AUTO) 1 % (0-1); EOSINOPHILS # (AUTO) 0.35 x10^3/uL (0-0.4); EOSINOPHILS % (AUTO) 5 % (1-7); LYMPHOCYTES % (AUTO) 11 % (22-44); MD NO; MEAN CORPUSCULAR HEMOGLOBIN 31.6 pg (27.5-34.5); MEAN CORPUSCULAR HGB CONC 31.9 g/dL (33.2-36.2); MEAN CORPUSCULAR VOLUME 99.2 fL (81-97); MEAN PLATELET VOLUME 7.8 fL (7.4-10.4); MONOCYTES # (AUTO) 0.88 x10^3/uL (0.2-0.8); MONOCYTES % (AUTO) 12 % (2-9); NEUTROPHILS # (AUTO) 5.09 x10^3/uL (1.8-6.8); NEUTROPHILS % (AUTO) 71 % (42-75); PLATELET COUNT 200 x10^3/uL (130-400); RED BLOOD COUNT 3.56 x10^6/uL (4.38-5.82); RED CELL DISTRIBUTION WIDTH 18.9 % (9.4-14.8)
[2019-02-25] MEDS ORDERED: HEART PILL PO (07:28)
[2019-02-25] MEDS ORDERED: IPRA3AMP30 INH (07:28)
[2019-02-25] MEDS ORDERED: FURO80TA77 PO (07:28)
[2019-02-25] MEDS ORDERED: METO25TA35 PO (07:28)
[2019-02-25] MEDS ORDERED: ACET-1600 PO (07:28)
[2019-02-25] MEDS ORDERED: OXYC5CAP2 PO (07:28)
[2019-02-25] MEDS ORDERED: BUDE10.2 INH (07:28)
[2019-02-25] MEDS ORDERED: FENTANYL PF 100 MCG/2ML ONE (07:32)
[2019-02-25] MEDS ORDERED: MIDAZOLAM 1 MG/ML, 2ML ONE (07:32)
[2019-02-25] MEDS ORDERED: CEFAZOLIN 1,000 MG ONE (07:33)
[2019-02-25] MEDS ORDERED: PROPOFOL 50 ML ONE (07:33)
[2019-02-25] MEDS ORDERED: DEXAMETHASONE 4 MG/ML, 1ML ONE (07:33)
[2019-02-25] MEDS ORDERED: ONDANSETRON 2MG/ML, 2ML ONE (07:33)
[2019-02-25 07:40] LABS: ANION GAP 12 mmol/L (5-15); CHLORIDE 99 mmol/L (98-107); CREATININE 3.87 mg/dL (0.7-1.3)
[2019-02-25] MEDS ORDERED: OXYcodone 5 MG/5 ML ORAL.SOL UDC PO PRN (08:30)
[2019-02-25] MEDS ORDERED: HYDROmorphone 2 MG/ML, 1ML IVPush PRN (08:30)
[2019-02-25] MEDS ORDERED: FENTANYL PF 100 MCG/2ML IV PRN (08:30)
[2019-02-25] MEDS ORDERED: METOPROLOL 1 MG/ML, 5ML IV PRN (08:30)
[2019-02-25] MEDS ORDERED: ONDANSETRON 2MG/ML, 2ML IV PRN (08:30)
[2019-02-25] MEDS ORDERED: ACETAMINOPHEN 325 MG TABLET PO PRN (08:30)
[2019-02-25] MEDS ORDERED: ALBUTEROL/IPRATROPIUM 2.5MG/0.5MG, 3 ML NPPB PRN (08:30)
[2019-02-25] MEDS ORDERED: hydrALAzine 20 MG/ML, 1ML IV PRN (08:30)
[2019-02-25] MEDS ORDERED: OXYcodone 5 MG/5 ML ORAL.SOL UDC ONE (09:08)
[2019-02-25] MEDS ORDERED: HEPARIN 1,000 UNITS/ML, 10ML PERMACATH ONE ×2 (09:30→10:00)
== END 2019-02-25 10:35 | disposition home or self-care (01) ==
LOC: OUT 06:02
PROVIDERS: ATTEND Surgery
DX: I13.2 Hypertensive heart and chronic kidney disease with heart failure and with stage 5 chronic kidney disease, or end stage renal disease (principal); N18.6 End stage renal disease; I50.9 Heart failure, unspecified; I25.10 Atherosclerotic heart disease of native coronary artery without angina pectoris; E78.5 Hyperlipidemia, unspecified; J44.9 Chronic obstructive pulmonary disease, unspecified; E03.9 Hypothyroidism, unspecified; Z79.899 Other long term (current) drug therapy; Z88.8 Allergy status to other drugs, medicaments and biological substances; Z95.0 Presence of cardiac pacemaker; Z95.5 Presence of coronary angioplasty implant and graft; Z86.73 Personal history of transient ischemic attack (TIA), and cerebral infarction without residual deficits; Z82.49 Family history of ischemic heart disease and other diseases of the circulatory system
CPT/HCPCS: 36415; 36821; 80048; 85025; J0690; J1100; J1644; J2250; J2405; J2440; J2704; J2720; J3010; J3370